=== PATIENT | male | born 2000 | race Caucasian/White ===

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

== ENCOUNTER 2022-09-17 10:25 | Emergency (ER) | payer OTHER, SELFPAY ==
[2022-09-17 10:38] VITALS: BP 127/69; PULSE 68; RESP 16; TEMP 36.6; O2SAT 99
--- NOTE | 2022-09-17 11:02 | ED.URI ---
HPI - URI/Sore Throat General Chief Complaint: Upper Respiratory Infection Stated Complaint: sorethroat Time Seen by Provider: 09/17/22 11:02 Source: patient Mode of arrival: ambulatory Limitations: no limitations History of Present Illness HPI Narrative: 21-year-old male presents with complaint of sore throat, fatigue for 3 days. Afebrile. No other symptoms. Reports strep throat is going around at work. All systems reviewed and negative except as noted above. Related Data Allergies Allergy/AdvReac Type Severity Reaction Status Date / Time No Known Allergies Allergy Verified 05/21/22 11:08 Review of Systems Review of Systems: CONSTITUTIONAL: Denies fever, chills, or sweats. EYES: Denies visual changes, redness, or discharge. ENT: Denies rhinorrhea, congestion . Reports sore throat. Denies otalgia. CARDIOVASCULAR: Denies chest pain, palpitations, or edema. RESPIRATORY: Denies cough or dyspnea. GASTROINTESTINAL: Denies abdominal pain, nausea, vomiting, or diarrhea. GENITOURINARY: Denies dysuria or hematuria. SKIN: Denies rash or itching. MUSCULOSKELETAL: Denies back pain, joint pain, or myalgia. NEUROLOGIC: Denies headache, numbness, or weakness. PSYCHIATRIC: Denies anxiety or depression. All other systems reviewed are negative, except as documented in HPI. [facility] Past Medical History Medical History ADHD Chest pain Chicken pox H/O gastroesophageal reflux (GERD) Hand fracture (~2020) Surgical History Surgical History No significant past surgical history Family History Family History Father , 54 Lung cancer Mother Diabetes mellitus Social History Social History Social History: Patient drinks caffeine once in a while Smoking status: Never smoker Second hand tobacco smoke exposure: No Alcohol intake: current Alcohol use details: Patient drinks alcohol rarely Substance use: current Substance use type: marijuana Last use: Uses Marijuana often Living arrangements: with family Occupation/Education: occupation Additional occupation/education comments: [id number] Gender identity (if verbalized by the patient): Male Comments At time of signature, agree with nursing past medical, surgical, social and family history. There is no relevant family history pertinent to the presenting complaint. Exam Narrative: GENERAL: This is a well-nourished, well-developed patient, in no apparent distress. HEAD: normocephalic, atraumatic. EYES: PERRL. Sclera clear/white. Vision is grossly intact. EARS: External ears normal, auditory canals clear and without drainage, TMs normal without perforation. Hearing grossly intact. NOSE: External nose normal with no obvious nasal discharge, nares without redness, no rhinorrhea. THROAT: Mucous membranes moist, mild erythema to posterior pharynx without swelling or exudates. NECK: Neck supple, non-tender without lymphadenopathy, masses or thyromegaly. CARDIOVASCULAR: Regular rate and rhythm without murmurs, gallops, or rubs. RESPIRATORY: Clear to auscultation. Breath sounds equal bilaterally. No wheezes, rales, or rhonchi. SKIN: warm, Dry, intact with no suspicious lesions or rash, good texture and turgor. NEURO: awake, alert, and oriented to person, place and time. There were no obvious focal neurologic abnormalities. EXTREMITIES: No joint tenderness, effusion, or edema noted. Course Course Level of Care: Express Care Visit Vital Signs Vital signs: Vital Signs Temperature 36.6 C 09/17/22 10:38 Pulse Rate 68 09/17/22 10:38 Respiratory Rate 16 09/17/22 10:38 Blood Pressure 127/69 09/17/22 10:38 Pulse Oximetry 99 09/17/22 10:38 Oxygen Delivery Room Air 09/17/22 10:38 Temperature 36.6 C 09/17
== END 2022-09-17 11:19 | disposition home or self-care (01) ==
PROVIDERS: Emergency Provider Nurse Practitioner Family; PCP Emergency Medicine
DX: J02.0 Streptococcal pharyngitis (principal); K21.9 Gastro-esophageal reflux disease without esophagitis
CPT/HCPCS: 87880; 99213; G0463

== ENCOUNTER 2023-01-08 08:46 | Emergency (ER) | payer OTHER, SELFPAY ==
--- NOTE | 2023-01-08 08:48 | ED.URI ---
HPI - URI/Sore Throat General Chief Complaint: Upper Respiratory Infection Stated Complaint: Upset Stomach,Cough,Congestion Time Seen by Provider: 01/08/23 08:47 Source: patient Mode of arrival: ambulatory Limitations: no limitations History of Present Illness HPI Narrative: Ant is a 22-year-old male patient presenting to the clinic today with complaints of nausea, cough, and congestion x4 days. He reports no known fever, body aches, or chills. No known exposure to anyone with COVID, flu, or strep. He reports his girlfriend has similar symptoms and she went to the doctor had testing was negative for everything. Called off work this morning and is requesting a work note. MD elicited complaint: cough, nasal congestion and other (Nausea) Related Data Allergies Allergy/AdvReac Type Severity Reaction Status Date / Time No Known Allergies Allergy Verified 01/08/23 08:47 Review of Systems Review of Systems: Pertinent positives per HPI. Patient denies any fever, chills, rash, headache, visual changes, dizziness, shortness of breath, chest pain, palpitations, nausea, vomiting, diarrhea, constipation, abdominal pain, or any urinary issues. [facility] Past Medical History Medical History ADHD Chest pain Chicken pox H/O gastroesophageal reflux (GERD) Hand fracture (~2020) Surgical History Surgical History No significant past surgical history Family History Family History Father , 54 Lung cancer Mother Diabetes mellitus Social History Social History Social History: Patient drinks caffeine once in a while Smoking status: Never smoker Second hand tobacco smoke exposure: No Alcohol intake: current Alcohol use details: Patient drinks alcohol rarely Substance use: current Substance use type: marijuana Last use: Uses Marijuana often Living arrangements: with family Occupation/Education: occupation Additional occupation/education comments: [id number] Gender identity (if verbalized by the patient): Male Comments At the time of my signature, I reviewed and agree with the nursing past medical, surgical, social, and family history. There is no relevant family history pertinent to the patient complaint. Exam Narrative: General: Well-developed, well nourished, in no apparent distress Head: Normocephalic, atraumatic Eyes: Pupils equally round and reactive to light bilaterally, EOM intact, sclera and conjunctive clear, no discharge, lids normal Ears: TMs intact and congested, ear canals clear, no drainage, grossly hearing normal. Nose: Nares patent, clear nasal discharge, no inflammation, no sinus tenderness. Mouth: Oral pharynx without lesions or masses, good dentition, MMM. Postnasal drip Neck: Supple, trachea midline, no enlargement of anterior or posterior cervical nodes, no thyroid masses or goiter palpable. Cardio: Regular rate and rhythm, s1 and s2 normal, no murmur appreciated. Resp: Clear to auscultation bilaterally, no rhonchi, rales, wheezing or rubs Course Course Emergency Course: Portions of this record may have been created with voice recognition software. Level of Care: Express Care Visit Vital Signs Vital signs: Vital signs reviewed MDM - URI/Sore Throat MDM Narrative Medical decision making narrative: At the time of visit patient is resting comfortably on the exam table. I suspect patient has URI/postnasal drip/viral syndrome. Will send in prescription for prednisone to help dry up the congestion. Supportive measures were discussed with the patient he voiced understanding discharge instructions and agrees to treatment plan. Differential Diagnosis Differential diagnosis: Likely upper respiratory infection, ot
[2023-01-08 08:53] VITALS: BP 131/71; PULSE 100; RESP 16; TEMP 37; O2SAT 100
== END 2023-01-08 09:02 | disposition home or self-care (01) ==
PROVIDERS: Emergency Provider Nurse Practitioner Family; PCP Emergency Medicine
DX: B34.9 Viral infection, unspecified (principal); R09.82 Postnasal drip; J06.9 Acute upper respiratory infection, unspecified; K21.9 Gastro-esophageal reflux disease without esophagitis
CPT/HCPCS: 99213; G0463

== ENCOUNTER 2023-01-16 14:43 | Emergency (ER) | payer OTHER, SELFPAY ==
--- NOTE | ~2023-01-16 | XR_ITS ---
EXAMINATION: XR chest 2V Exam Date/Time: 01/16/2023 17:20 CDT HISTORY: Tachycardia Comparison: None. RESULT: Lines, tubes, and devices: None. Lungs and pleura: Clear. Cardiomediastinal silhouette: Normal. Other: No acute osseous or upper abdominal finding. IMPRESSION: No acute cardiopulmonary process. Reviewed, dictated and finalized at location K.
[2023-01-16 15:04] VITALS: BP 155/84; PULSE 120; RESP 14; TEMP 37.1; O2SAT 99
--- NOTE | 2023-01-16 15:08 | ECG_ITS ---
Measurements Intervals [place] Rate: 116 P: 75 CO: 120 QRS: 74 QRSD: 86 T: -1 QT: 301 QTc: 419 Interpretive Statements SINUS TACHYCARDIA NONSPECIFIC T-WAVE ABNORMALITY NO PREVIOUS ECG AVAILABLE FOR COMPARISON Electronically Signed On 01-17-2023 8:50:37 CDT by Casey Summers M.D.
[2023-01-16 16:06] VITALS: BP 166/81; PULSE 110; RESP 18; O2SAT 100
[2023-01-16] MEDS: hydrOXYzine HCL 25 MG TABLET 50 MG PO (17:16)
[2023-01-16 17:31] LABS: Anion Gap 12 mmol/L (8-16); Blood Urea Nitrogen 10 mg/dL (9-20); Calcium 9.9 mg/dL (8.4-10.2); Carbon Dioxide 19 mmol/L (22-30); Chloride 106 mmol/L (98-107); Estimated CRCL calculation 121 ml/min; Estimated Glomerular Filt Rate > 60; Glucose 86 mg/dL (65-110); Potassium 3.5 mmol/L (3.4-5.0); Sodium 137 mmol/L (137-145)
--- NOTE | 2023-01-16 17:35 | ED.ANXIETY ---
HPI - Anxiety General Chief Complaint: Anxiety Stated Complaint: anxiety - on Zoloft Time Seen by Provider: 01/16/23 16:22 History of Present Illness HPI narrative: This is a 22-year-old male with past medical history of depression, who presents emergency department complaining of anxiety. The patient states this been going on for the past several weeks and is associated with palpitations. Today the palpitations persisted, prompting his evaluation here. He denies suicidal or homicidal ideations. He states he uses marijuana only, though that does exacerbate his palpitations. Related Data Allergies Allergy/AdvReac Type Severity Reaction Status Date / Time No Known Allergies Allergy Verified 01/16/23 14:44 Review of Systems Review of Systems: CONSTITUTIONAL: Denies fever, chills, or sweats. CARDIOVASCULAR: Palpitations denies chest pain, or edema. RESPIRATORY: Denies cough or dyspnea. GASTROINTESTINAL: Denies abdominal pain, nausea, vomiting, or diarrhea. GENITOURINARY: Denies dysuria or hematuria. SKIN: Denies rash or itching. MUSCULOSKELETAL: Denies back pain, joint pain, or myalgia. NEUROLOGIC: Denies headache, numbness, dizziness, or weakness. PSYCHIATRIC: Anxiety and depression. Denies suicidal or homicidal ideations PMFSH Past Medical History Medical History ADHD Chest pain Chicken pox H/O gastroesophageal reflux (GERD) Hand fracture (~2020) Surgical History Surgical History No significant past surgical history Family History Family History Father , 54 Lung cancer Mother Diabetes mellitus Social History Social History Social History: Patient drinks caffeine once in a while Smoking status: Never smoker Second hand tobacco smoke exposure: No Alcohol intake: current Alcohol use details: Patient drinks alcohol rarely Substance use: current Substance use type: marijuana Last use: Uses Marijuana often Living arrangements: with family Occupation/Education: occupation Additional occupation/education comments: [id number] Gender identity (if verbalized by the patient): Male Exam Narrative: GENERAL: Well-developed, well-nourished, and in no acute distress. HEAD: Normocephalic, atraumatic. EYES: PERRLA and EOMI. NECK: Supple. No adenopathy or masses. CHEST: Clear to auscultation. No respiratory distress. No wheezes rales or rhonchi HEART: Tachycardic with regular rhythm. No murmur heard. Normal peripheral pulses. ABDOMEN: Soft, nontender, nondistended, normal active bowel sounds. EXTREMITIES: Normal range of motion. No edema. SKIN: Warm, dry, no rash. NEURO: No focal deficits. Alert and oriented x3. PSYCH: Normal mood and affect. Course Course Emergency Course: 18:34 - BMP unremarkable. Chest x-ray unremarkable. EKG showed sinus tachycardia but is otherwise unremarkable. On reevaluation after Atarax, the patient states he feels much improved. Heart rate improved to the 70s. TSH pending and is delayed for unknown reasons. Will discharge with recommendation for primary care follow-up. Will add Atarax as needed. Vital Signs Vital signs: Vital Signs Temperature 98.7 F 01/16/23 15:04 Pulse Rate 120 H 01/16/23 15:04 Respiratory Rate 14 01/16/23 15:04 Blood Pressure 155/84 H 01/16/23 15:04 Pulse Oximetry 99 01/16/23 15:04 Oxygen Delivery Room Air 01/16/23 15:04 Temperature 98.7 F 01/16/23 15:04 Pulse Rate 110 H 01/16/23 16:06 Respiratory Rate 18 01/16/23 16:06 Blood Pressure 166/81 H 01/16/23 16:06 Pulse Oximetry 100 01/16/23 16:06 Oxygen Delivery Room Air 01/16/23 15:04 MDM - Anxiety MDM Narrative Medical decision making narrative: Plan: Labs, imaging, EKG, anxiolysis, reasses
[2023-01-16 18:46] VITALS: BP 137/72; PULSE 79; RESP 20; O2SAT 99
[2023-01-16 19:15] VITALS: BP 125/77; PULSE 80; RESP 18; O2SAT 99
== END 2023-01-16 19:17 | disposition home or self-care (01) ==
PROVIDERS: Emergency Provider Preventive Medicine Aerospace Medicine; PCP Emergency Medicine
DX: F41.9 Anxiety disorder, unspecified (principal); R00.0 Tachycardia, unspecified; K21.9 Gastro-esophageal reflux disease without esophagitis; F32.A Depression, unspecified
CPT/HCPCS: 36415; 71046; 80048; 84443; 93005; 99283; A9270

== ENCOUNTER 2023-02-20 15:53 | Outpatient (CLI) | payer OTHER, SELFPAY ==
[2023-02-20 16:55] LABS: Alanine Aminotransferase 17 U/L (6-50); Albumin Level 4.7 g/dL (3.5-5.1); Alkaline Phosphatase 73 U/L (38-126); Anion Gap 8 mmol/L (8-16); Aspartate Amino Transferase 26 U/L (17-59); Bilirubin,Total 0.3 mg/dL (0.2-1.3); Blood Urea Nitrogen 16 mg/dL (9-20); Calcium 9.7 mg/dL (8.4-10.2); Carbon Dioxide 26 mmol/L (22-30); Chloride 103 mmol/L (98-107); Estimated Glomerular Filt Rate > 60; Glucose 92 mg/dL (65-110); Sodium 137 mmol/L (137-145)
== END 2023-02-20 15:54 | disposition home or self-care (01) ==
PROVIDERS: PCP Emergency Medicine; Visit Provider Emergency Medicine
DX: E78.5 Hyperlipidemia, unspecified (principal)
CPT/HCPCS: 36415; 80053

== ENCOUNTER 2023-03-28 16:59 | Emergency (ER) | payer OTHER, SELFPAY ==
--- NOTE | ~2023-03-28 | XR_ITS ---
EXAMINATION: XR hand LT min 3V INDICATION: Left hand pain TECHNIQUE: Three views of the left hand are obtained. COMPARISON: 09/16/2014 FINDINGS: No fracture, dislocation, or subluxation. The bones, soft tissues, and joint spaces are nor mal. IMPRESSION: 1. No acute osseous abnormality. Reviewed, dictated and finalized at location F.
--- NOTE | ~2023-03-28 | XR_ITS ---
EXAMINATION: XR knee LT 3V DATE: 03/28/2023 18:44 INDICATION: Left knee pain TECHNIQUE: Three views of the left knee were obtained. COMPARISON: None. FINDINGS: Alignment is normal. No fracture or osteochondral lesion. Joint spaces are normal with no e rosions. No joint effusion/synovitis. Soft tissues are unremarkable. IMPRESSION: 1. No acute osseous abnormality. Reviewed, dictated and finalized at location F.
[2023-03-28 17:08] VITALS: BP 108/63; PULSE 89; RESP 20; TEMP 36.2; O2SAT 99
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
[2023-03-28] MEDS: ACETAMINOPHEN 500 MG TABLET 1000 MG PO (19:17)
--- NOTE | 2023-03-28 19:43 | PC.NURSE ---
This RN assumed care of patient.
== END 2023-03-28 20:23 | disposition home or self-care (01) ==
PROVIDERS: Emergency Provider Student in an Organized Health Care Education/Training Program; PCP Emergency Medicine
DX: S69.92XA Unspecified injury of left wrist, hand and finger(s), initial encounter (principal); S80.02XA Contusion of left knee, initial encounter; V49.50XA Passenger injured in collision with unspecified motor vehicles in traffic accident, initial encounter; F90.9 Attention-deficit hyperactivity disorder, unspecified type; F12.90 Cannabis use, unspecified, uncomplicated; K21.9 Gastro-esophageal reflux disease without esophagitis
CPT/HCPCS: 73130; 73562; 99284; A9270

== ENCOUNTER 2023-05-22 09:00 | Emergency (ER) | payer OTHER, SELFPAY ==
[2023-05-22 09:21] VITALS: BP 141/67; PULSE 92; RESP 18; TEMP 36.5; O2SAT 100
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
== END 2023-05-22 09:51 | disposition home or self-care (01) ==
PROVIDERS: Emergency Provider Registered Nurse; PCP Emergency Medicine
DX: K52.9 Noninfective gastroenteritis and colitis, unspecified (principal)
CPT/HCPCS: 99213; G0463

== ENCOUNTER 2023-06-23 11:06 | Emergency (ER) | payer OTHER, SELFPAY ==
[2023-06-23 11:19] VITALS: BP 131/62; PULSE 89; RESP 18; TEMP 37.1; O2SAT 99
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
== END 2023-06-23 12:16 | disposition home or self-care (01) ==
PROVIDERS: Emergency Provider Nurse Practitioner Family; PCP Emergency Medicine
DX: J02.0 Streptococcal pharyngitis (principal); H66.001 Acute suppurative otitis media without spontaneous rupture of ear drum, right ear; Z20.822 Contact with and (suspected) exposure to COVID-19; K21.9 Gastro-esophageal reflux disease without esophagitis
CPT/HCPCS: 87426; 87804; 87880; 99213; G0463